=== PATIENT | male | born 1965 | race Caucasian/White ===

== ENCOUNTER 2017-02-11 10:45 | Emergency (ER) | payer MEDICAID ==
[2017-02-11 10:59] VITALS: BP 169/89; BMI 31.6
--- NOTE | 2017-02-11 11:12 | DR.EXTPAIN ---
HPI - Time seen Time seen: 11:05 - PCP Primary Care Physician: TARYN SOUZA - Complaint/Symptoms Chief Complaint Doctor Comments: Patient presents with complaint of cough, right knee and right foot pain. He is followed by Dr Self. He has been seen by podiatry for right foot pain. Chief Complaint:: PT STATES " I HAVE BEEN HURTING IN MY RIGHT KNEE, AND ANKLE, AND I HAVE A COLD..... Self Treatment fo Chief Complaint: PT STATES " I TAKE TYLENOL # 4 AND THEY DON' T WORK ONLY MORPHINE WORKS". - Source History Provided: Patient - Mode of arrival Mode of Arrival: Ambulatory - Timing Onset of Chief Complaint: 08/27/14 PMH - PMH Past Medical History: Yes Past Medical History: Dyslipidemia, Headaches, Hypertension Past Surgical History: No - Family History History of Family Medical Conditions: Yes Family Medical History: Diabetes Mellitus, [place] Family Medical History Comment: CVA - Social History Does patient currently use any type of tobacco product: No Have you used tobacco products in the last 12 months: No Type of Tobacco Use: Smokeless Does any household member use tobacco: No Alcohol Use: None Do you use any recreational Drugs:: No Lives With: Friend Lives Where: Home - infectious screening In the last 2 months have you had wt loss of >10#?: NO Have you had fever, night sweats or hemotysis?: No Have you traveled outside the country in the last 6 months?: No Isolation: Standard ROS - Review of Systems Eyes: No Symptoms Reported ENTM: No Symptoms Reported, Hearing Loss Respiratoy: Dry Cough Cardiovascular: No Symptoms Reported Gastrointestinal/Abdominal: No Symptoms Reported Genitourinary: No Symptoms Reported Neurological: No Symptoms Reported Musculoskeletal: No Symptoms Reported Integumentary: No Symptoms Reported Hematologic/Lymphatic: No Symptoms Reported Endocrine: No Symptoms Reported Psychiatric: No Symptoms Reported All Other Systems: Reviewed and Negative PE - Vital Signs Vitals: Temperature 98.2 F Pulse Rate 123 Respiratory Rate 20 Blood Pressure 169/89 O2 Sat by Pulse Oximetry 99 - General Limitations: No Limitations General Appearance: Alert, In No Apparent Distress - Head Head Exam: Normal Inspection, Atraumatic - Eyes Eye exam: Normal Appearance, PERRL, EOMI - ENT ENT Exam: Normal Exam - Neck Neck Exam: Normal Inspection, Full ROM - Chest Chest Inspection: Normal Inspection - Respiratory Respiratory Exam: Normal Lung Sounds Bilat Respiratory Exam: Bilateral Clear to Auscultation - Cardiovascular Cardiovascular Exam: Regular Rate, Normal Rhythm - Abdominal Exam Abdominal Exam: Normal Inspection Abdominal Tenderness: negative: RUQ, RLQ, LUQ, LLQ, Epigastrium, Suprapubic, Diffuse, Mild, Moderate, Severe, Other - Extremities Extremities Exam: Normal Inspection, Full ROM - Upper Extremities Shoulder Exam: Normal Inspection Arm Exam: Normal Inspection, Full ROM Elbow Exam: Normal Inspection Forearm Exam: Normal Inspection Hand Exam: Normal Inspection Neuromotor Exam: Normal Exam Neurosensory Exam: Normal Exam - Lower Extremities Hip/Pelvis Exam: Normal Inspection Upper Leg Exam: Normal Inspection, Full ROM Knee Exam: Normal Inspection. negative: Swelling, Deformity Lower Leg Exam: Normal Inspection, Full ROM Ankle Exam: Normal Inspection Foot/Toe Exam: Deformity (bunion right foot) Neurovascular/Tendon Exam: Normal Capillary Refill Gait Exam: Observed and Normal - Back Back Exam: Normal Inspection, Full ROM - Neurological Neurological Exam: Alert, Oriented X3, CN II-XII Intact - Psychiatric Psychiatric Exam: Normal Affect - Skin Skin Exam: Warm, Dry, Intact - Diagnosis Discharge Problem: Knee pain, chronic Qualifiers: Laterality: right Qualified Code(s): M25.561 - Pain in right knee; G89.29 - Other chronic pain URI (upper respiratory infection) Qualifiers: URI type: unspecified viral URI Qualified Code(s): J06.9 - Acute upper respiratory infection, unspecified; B97.89 - Other viral agents as the cause of diseases classified elsewhere - Discharge Plan Condition: Stable - Follow ups/Referrals Follow ups/Referrals: NFD,None [Primary Care Provider] - 3 days - Instructions
[2017-02-11] MEDS ORDERED: TORADOL 60 MG VIAL IM ONE (11:14)
[2017-02-11] MEDS ORDERED: TORADOL 60 MG VIAL ONE (11:15)
== END 2017-02-11 11:33 | disposition home or self-care (01) ==
LOC: ER 10:59
DX: M25.561 Pain in right knee (principal); G89.29 Other chronic pain; J06.9 Acute upper respiratory infection, unspecified
CPT/HCPCS: 29530; 96372; 99282; J1885

== ENCOUNTER 2017-03-06 02:21 | Emergency (ER) | payer MEDICAID ==
[2017-03-06 02:37] VITALS: BP 162/102; BMI 31.3
[2017-03-06] MEDS ORDERED: PHENERGAN INJ 25 MG IM ONE (03:10)
[2017-03-06] MEDS ORDERED: TORADOL 60 MG VIAL IM ONE (03:10)
[2017-03-06] MEDS ORDERED: TORADOL 60 MG VIAL ONE (03:12)
[2017-03-06] MEDS ORDERED: PHENERGAN INJ 25 MG ONE (03:12)
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
== END 2017-03-06 03:14 | disposition left against medical advice (07) ==
LOC: ER 02:21
DX: M46.92 Unspecified inflammatory spondylopathy, cervical region (principal)
CPT/HCPCS: 99281; 99282; J1885; J2550

== ENCOUNTER 2017-05-02 07:48 | Emergency (ER) | payer MEDICAID ==
[2017-05-02 07:53] VITALS: BP 174/98; BMI 34.1
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
[2017-05-02] MEDS ORDERED: TORADOL 60 MG VIAL IM ONE (08:45)
[2017-05-02] MEDS ORDERED: TORADOL 60 MG VIAL ONE (09:21)
--- NOTE | 2017-05-02 09:51 | RAD ---
HISTORY: Low back pain Study: Lumbar spine AP, lateral, spot Comparison: None Findings: Normal alignment of the lumbar spine is maintained. The posterior elements appear unremarkable in th eir appearance. The disk space height is maintained without significant endplate sclerosis. No evid ence for acute fracture can be identified. The SI joints are normal. IMPRESSION: 1. Negative exam. Reported By:
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
== END 2017-05-02 10:07 | disposition home or self-care (01) ==
LOC: ER 07:57
DX: M47.812 Spondylosis without myelopathy or radiculopathy, cervical region (principal)
CPT/HCPCS: 72040; 72100; 96372; 99282; 99283; J1885

== ENCOUNTER 2017-05-08 07:16 | Emergency (ER) | payer MEDICAID ==
[2017-05-08 07:40] VITALS: BP 156/109; BMI 34.0
[2017-05-08] MEDS ORDERED: NORFLEX INJ IM ONE (08:12)
[2017-05-08] MEDS ORDERED: TORADOL 60 MG VIAL IM ONE (08:12)
[2017-05-08] MEDS ORDERED: TORADOL 60 MG VIAL ONE (08:14)
[2017-05-08] MEDS ORDERED: NORFLEX INJ ONE (08:14)
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
== END 2017-05-08 09:25 | disposition home or self-care (01) ==
LOC: ER 07:42
DX: M46.92 Unspecified inflammatory spondylopathy, cervical region (principal)
CPT/HCPCS: 96372; 99282; J1885; J2360